=== PATIENT | female | born 1995 | race Caucasian/White ===

== ENCOUNTER 2020-03-17 15:39 | Emergency (ER) | payer OTHER ==
[~2020-03-17] VITALS: Ht 152.4 cm; Wt 65.9 kg
[2020-03-17] MEDS ORDERED: NS 1,000 ML IV ONE (16:00)
[2020-03-17] MEDS ORDERED: ONDANSETRON 4MG/2ML VIAL IV ONE (16:00)
[2020-03-17 16:12] LABS: IONIZED CALCIUM 4.5 MG/DL (4.5-5.3)
[2020-03-17 16:16] LABS: HEMATOCRIT 44.1 % (36.0-47.0); HEMOGLOBIN 14.9 g/dl (12.0-15.5); MEAN CORPUSCULAR HEMOGLOBIN 32.1 pg (27.0-33.0); MEAN CORPUSCULAR HGB CONC 33.8 g/dl (32.0-36.5); PLATELET COUNT, AUTOMATED 410 10^3/uL (150-450); RED BLOOD COUNT 4.64 10^6/uL (4.00-5.40); WHITE BLOOD COUNT 10.8 10^3/uL (4.0-10.0)
[2020-03-17 16:41] LABS: ALBUMIN 4.1 GM/DL (3.2-5.2); ALT/SGPT 25 U/L (12-78); BILIRUBIN,TOTAL 0.5 MG/DL (0.2-1.0); BLOOD UREA NITROGEN 7 MG/DL (7-18); CALCIUM LEVEL 9.5 MG/DL (8.5-10.1); CARBON DIOXIDE LEVEL 21 MEQ/L (21-32); CHLORIDE LEVEL 109 MEQ/L (98-107); CREATININE FOR GFR 0.97 MG/DL (0.55-1.30); GLOMERULAR FILTRATION RATE > 60.0 (>60); GLUCOSE, FASTING 115 MG/DL (70-100); POTASSIUM SERUM 3.5 MEQ/L (3.5-5.1); SODIUM LEVEL 144 MEQ/L (136-145); TOTAL PROTEIN 7.9 GM/DL (6.4-8.2)
[2020-03-17 17:00] LABS: MAGNESIUM LEVEL 1.7 MG/DL (1.8-2.4)
[2020-03-17] MEDS ORDERED: MAG SULF 1GM/100ML (MAG RUN) 1 GM in IV 1 EA IV ONE (17:15)
[2020-03-17 18:31] VITALS: BP 106/69
== END 2020-03-17 18:32 | disposition home or self-care (01) ==
LOC: M ED 15:39
DX: E83.42 Hypomagnesemia (principal); R11.10 Vomiting, unspecified
CPT/HCPCS: 36600; 80053; 82330; 82803; 83735; 85027; 96361; 96365; 96375; 99284; G0480; J2405; J3475

== ENCOUNTER → 2020-06-05 | Outpatient (REF) | payer OTHER | LOC: M LAB 22:15 | PROVIDERS: ATTEND Physician Assistant | DX: Z11.59 Encounter for screening for other viral diseases (principal) ==